=== PATIENT | female | born 1970 | race Caucasian/White ===

== ENCOUNTER 2018-03-09 07:18 | Emergency (ER) | payer BC, SELFPAY ==
[2018-03-09 07:28] VITALS: BP 140/73; PULSE 76; RESP 16; TEMP 36.5; O2SAT 98
[2018-03-09 07:37] LABS: Bilirubin Negative (Negative); Blood Trace-intact (Negative); Clarity Clear; Glucose Negative (Negative); Ketones Negative (Negative); Leukocyte Esterase Negative (Negative); Nitrite Negative (Negative); Specific Gravity 1.015 (1.005-1.025); Urobilinogen 0.2 EU/dL (Up TO 0.2)
[2018-03-09 07:44] LABS: RBC 0-2 (0-2); WBC 0-2 HPF (0-5)
[2018-03-09 07:45] LABS: Bacteria Few HPF (Negative); Crystals Negative HPF (Negative); Epithelial Cells Few HPF (Negative)
[2018-03-09 07:46] LABS: C & S Indicated? No; Casts Negative LPF (Negative); Mucus Negative (Negative)
--- NOTE | 2018-03-09 08:48 | DI.REPORT_ITS ---
SYMPTOM/DIAGNOSIS: LEFT LOWER ABDOMINAL PAIN. PELVIC ULTRASOUND: 03/09 Pelvic ultrasound was performed transabdominally and transvaginally. The patient has reportedly had a previous right oophorectomy. Uterus and left ovary are unremarkable in appearance. No free fluid identified in the cul de sac. Limited scanning of the kidneys is unremarkable. CONCLUSION: Negative pelvic ultrasound, status post right oophorectomy.
--- NOTE | 2018-03-09 09:46 | ED.GENADUL ---
Disposition Clinical Impression: Abdominal pain Disposition: HOME Instructions: Abdominal Pain (ED) Additional Instructions: Please take ibuprofen 600 mg by mouth every 6-8 hours as needed for pain for the next few days. Please take tylenol (acetaminophen) 650 mg every 6 hours as needed for pain. Please follow-up with your primary care physician and training and development officer. Return to the emergency department immediately for any worsening or new concerning symptoms. Referrals: ILA HERNANDEZ [Primary Care Provider] - Medical Decision Making - Lab Data Laboratory Tests 03/09/18 07:30 Urine Color Yellow Urine Clarity Clear Urine pH 5.0 Ur Specific [place] 1.015 Urine Protein Negative Urine Ketones Negative Urine Blood Trace-intact H Urine Nitrite Negative Urine Bilirubin Negative Urine Urobilinogen 0.2 Ur Leukocyte Esterase Negative Urine RBC 0-2 Urine WBC 0-2 Ur Epithelial Cells Few Urine Crystals Negative Urine Bacteria Few Urine Casts Negative Urine Mucus Negative Ur Culture Indicated? No Urine Glucose Negative - Medical Decision Making 9:30 --47-year-old female with history of right ovarian cyst status post remote oophorectomy here with left lower quadrant pain over the past week with associated vaginal bleeding. Concern for ovarian cyst versus torsion versus cancer. Plan for pelvic ultrasound. Toradol for pain. 11:00 -- Pelvic ultrasound interpreted by radiology: nl blood flow, no torsion, no mass, no cyst. UA nondiagnostic. Plan to proceed to CT imaging. 12:20 -- CT interpreted by radiology: gallstones present, no other abnormality noted. Patient reassessed and pain improved with toradol. Patient declined pelvic exam. We discussed the importance of timely follow-up with PCP and gynecology. Patient verbalized understanding of discharge instructions. History of Present Illness - General Chief complaint: Abd Prob Stated complaint: ABD PAIN Time Seen by Provider: 03/09/18 08:10 Source: patient, RN notes reviewed Mode of arrival: ambulatory Limitations: no limitations - History of Present Illness Initial comments: 47-year-old female with history of right ovarian cyst status post remote oophorectomy, presents today with chief complaint of abdominal pain. Patient notes intermittent left lower quadrant/left suprapubic abdominal pain for the past few months that is worse with menstruation. Patient states this month she is having early menstruation which is atypical for her and left ovarian pain that feels like a toothache over the past 1 week. Pain is intermittent. Now severe. Associated nausea. No vomiting. No dysuria. Patient took significant amount of ibuprofen yesterday which did not help her pain. - Related Data Epinephrine [Epipen 2-Néstor] 0.3 mg IJ PRN PRN 03/09/18 Allergies Allergy/AdvReac Type Severity Reaction Status Date / Time Opioids - Morphine Analogues Allergy Severe Anaphylaxsi Unverified 03/09/18 07:40 s bee venom protein (honey bee) Allergy Anaphylaxsi Unverified 03/09/18 07:40 s Review of Systems Constitutional: denies: chills, fever Respiratory: denies: cough, shortness of breath Gastrointestinal: as per HPI, abdominal pain. denies: nausea, vomiting Genitourinary: abnormal menses. denies: urgency, dysuria, frequency, hematuria Comment: All other systems reviewed and negative Past Medical History - Past Medical History Ovarian cyst Surgical history: other (Right oophorectomy) - Social History Smoking status: never smoker Alcohol use: none Drug use: none General Exam - General Limitations: no limitations General appearance: alert, in no apparent distress - Eye Eye exam: Absent: scleral icterus, conjunctival injection - ENT ENT exam: Present: mucous membranes moist - Respiratory Respiratory exam: Present: normal lung sounds bilaterally - Cardiovascular Cardiovascular Exam: Present: regular rate, normal rhythm, normal heart sounds - GI/Abdominal GI/Abdominal exam: Present: soft, tenderness (Left lower quadrant), normal bowel sounds. Absent: distended, guarding, rebound, rigid, mass - Extremities Exam Extremities exam: Present: other (2+ dorsalis pedis bilateral). Absent: pedal edema - Back Exam Back exam: Present: normal inspection - Neurological Exam Neurological exam: Present: alert. Absent: altered - Psychiatric Psychiatric exam: Present: normal affect - Skin Skin exam: Present: warm, dry, intact Course Vital Signs - 24 hr 03/09/18 07:28 Temperature 36.5 C Pulse 76 Respiratory 16 Rate Blood Pressure 140/73 Pulse Oximetry 98
--- NOTE | 2018-03-09 09:57 | DI.RPTCT_ITS ---
SYMPTOM/DIAGNOSIS: LLQ PAIN AND TENDERNESS, NEGATIVE ULTRASOUND ABDOMINAL AND PELVIC CT 03/09 CT examination of the abdomen and pelvis was performed without contrast administration. Images obtained through the lung bases are unremarkable. Visualized portions of the liver and spleen appear normal as does the pancreas. There is calcified gallstone. No gross pericholecystic fluid collection or gallbladder wall thickening seen. No biliary dilatation seen. Abdominal aorta is of normal diameter. No significant abdominal wall hernia seen. No significant abdominal or pelvic adenopathy The patient has reportedly had previous right oophorectomy. [employer] structures otherwise appear unremarkable. Appendix appears normal. No evidence of diverticulitis or bowel obstruction. Adrenals and kidneys appear normal. No urinary tract calcification or obstruction. Urinary bladder grossly unremarkable by noncontrast criteria. CONCLUSION: Cholelithiasis. No other significant abnormality seen.
[2018-03-09] MEDS: Ketorolac 30 MG/ML VIAL IM (10:03)
[2018-03-09 10:38] LABS: Absolute Basophil Count 0.01 k/cumm (0.0-0.2); Absolute Eosinophil Count 0.04 k/cumm (0.0-0.7); Absolute Lymphocyte Count 1.44 k/cumm (1.2-3.4); Basophils % 0.2; Eosinophils % 0.9; HCT 38.6 % (36.0-46.0); HGB 13.1 g/dL (12.0-15.5); Lymphocytes % 33.6; Mean Corp. HGB Concentration 33.9 g/dL (32.0-36.0); Mean Corpuscular Volume 91.3 fL (80-95); Mean Platelet Volume 10.9 fL (8.0-11.0); Neutrophils % 58.3; Platelet Count 208 x1000/uL (130-400); RBC 4.23 m/cumm (4.00-5.20); RBC Distribution Width 12.7 % (11.7-14.6); White Blood Cell Count 4.28 k/cumm (4.4-10.8)
[2018-03-09 10:40] VITALS: BP 108/56; PULSE 57; RESP 16; TEMP 36.6; O2SAT 98
[2018-03-09 10:50] LABS: ALT 19 U/L (12-78); AST 12 U/L (15-37); Albumin 3.6 g/dL (3.4-5.0); Alkaline Phosphatase 102 U/L (46-116); Anion Gap 7.3 mmol/L (3-11); BUN 7 mg/dL (7-18); Bilirubin, Total 1.1 mg/dL (0.2-1.0); CO2 26.7 mmol/L (21.0-32.0); CREATININE 0.79 mg/dL (0.55-1.02); Calcium 8.9 mg/dL (8.5-10.1); Chloride 107 mmol/L (98-107); Glucose 97 mg/dL (70-100); Potassium 4.3 mmol/L (3.5-5.1); Sodium 141 mmol/L (136-145); Total Protein 6.8 g/dL (6.4-8.2)
[2018-03-09 12:36] VITALS: BP 121/81; PULSE 80; RESP 16; TEMP 36.8; O2SAT 98
== END 2018-03-09 12:35 | disposition home or self-care (01) ==
LOC: ER 07-04 18:00
PROVIDERS: Emergency Medicine; Emergency Provider Student in an Organized Health Care Education/Training Program; PCP Family Medicine
DX: R10.32 Left lower quadrant pain (principal)
CPT/HCPCS: 36415; 80053; 81025; 96372; 99284; 74176; 76830; 76856; 81003; 81015; 85025; J1885

== ENCOUNTER 2018-07-04 18:03 | Outpatient (REF) | payer BC, SELFPAY | END 2018-07-04 18:23 | LOC: NCHCN 18:03 | PROVIDERS: PCP Family Medicine; Visit Provider Family Medicine | DX: N39.0 Urinary tract infection, site not specified (principal) | CPT/HCPCS: 87086 ==

== ENCOUNTER 2018-07-27 18:07 | Outpatient (REF) | payer BC, SELFPAY | END 2018-07-27 18:27 | LOC: NCHCN 18:07 | PROVIDERS: PCP Family Medicine; Visit Provider Family Medicine | DX: R30.0 Dysuria (principal) | CPT/HCPCS: 87077; 87086; 87186 ==

== ENCOUNTER 2019-08-17 14:22 | Outpatient (REF) | payer BC, SELFPAY ==
[2019-08-17 20:20] LABS: HCT 40.9 % (36.0-46.0); HGB 13.8 g/dL (12.0-15.5); Mean Corp. HGB Concentration 33.7 g/dL (32.0-36.0); Mean Corpuscular Hemoglobin 30.5 pg (27.0-33.0); Mean Corpuscular Volume 90.5 fL (80-95); Mean Platelet Volume 11.2 fL (8.0-11.0); Platelet Count 258 x1000/uL (130-400); RBC 4.52 m/cumm (4.00-5.20); RBC Distribution Width 12.9 % (11.7-14.6); White Blood Cell Count 4.53 k/cumm (4.4-10.8)
[2019-08-17 20:37] LABS: ALT 32 U/L (14-59); AST 22 U/L (15-37); Albumin 3.8 g/dL (3.4-5.0); Alkaline Phosphatase 133 U/L (46-116); Anion Gap 7.6 mmol/L (3-11); BUN 7 mg/dL (7-18); Bilirubin, Total 1.2 mg/dL (0.2-1.0); CO2 28.4 mmol/L (21.0-32.0); CREATININE 0.77 mg/dL (0.55-1.02); Chloride 104 mmol/L (98-107); Glucose 91 mg/dL (74-106); Potassium 4.2 mmol/L (3.5-5.1); Sodium 140 mmol/L (136-145); TSH (W/Ref FT4) 2.69 uIU/mL (0.36-3.74); Total Protein 6.9 g/dL (6.4-8.2)
== END 2019-08-17 14:42 ==
LOC: NCHCN 14:22
PROVIDERS: PCP Family Medicine; Visit Provider Family Medicine
DX: R10.11 Right upper quadrant pain (principal); R53.83 Other fatigue; Z78.0 Asymptomatic menopausal state
CPT/HCPCS: 80053; 85027; 84443